=== PATIENT | male | born 1980 | race Caucasian/White ===

== ENCOUNTER 2018-01-02 21:29 | Emergency (ER) | payer BC ==
[2018-01-02 21:43] VITALS: BP 128/86
--- NOTE | 2018-01-02 22:33 | UC ---
Respiratory Complaint HPI - HPI Summary HPI Summary: 4 day history of recurrent fever, malaise, myalgias. No headache, rash, occasional mild cough. No hx of tick bites. No infectious contacts. Had flu in July, has felt well since. States temp was 100.5 this evening. has continued to work despite this. Last ibuprofen was 24 hours ago. Has some mild abdominal discomfort. - History of Current Complaint Chief Complaint: UCGeneralIllness Stated Complaint: FEVER,COUGH,ACHES,FATIGUE Time Seen by Provider: 01/02/18 22:23 Hx Obtained From: Patient Onset/Duration: Sudden Onset, Lasting Days - 4 Timing: Intermittent Episodes Severity Initially: Moderate Severity Currently: Moderate Pain Intensity: 6 Character: Cough: Nonproductive - occasional only Associated Signs And Symptoms: Positive: Fever - some sweats. - Allergies/Home Medications Allergies/Adverse Reactions: Allergies Allergy/AdvReac Type Severity Reaction Status Date / Time Penicillins Allergy Rash Verified 01/02/18 21:37 erythromycin base AdvReac Vomiting Verified 01/02/18 21:37 PMH/Surg Hx/FS Hx/Imm Hx Previously Healthy: Yes - Surgical History Surgical History: None - Family History Known Family History: Positive: None - healthy family - Social History Occupation: Employed Full-time Lives: With Family Alcohol Use: Occasionally Substance Use Type: None Smoking Status (MU): Never Smoked Tobacco Type: Cigarettes When Did the Patient Quit Smoking/Using Tobacco: 10 YRS AGO quit chewing tobacco Review of Systems Constitutional: Fever, Fatigue Skin: Negative Eyes: Negative ENT: Negative Respiratory: Negative Cardiovascular: Negative Gastrointestinal: Abdominal Pain - has diffuse pain without vomiting. Genitourinary: Negative Motor: Negative Neurovascular: Negative Musculoskeletal: Negative Neurological: Negative Psychological: Negative Is Patient Immunocompromised?: No All Other Systems Reviewed And Are Negative: Yes Physical Exam Triage Information Reviewed: Yes Appearance: Ill-Appearing - looks mildly fatigued Vital Signs: Initial Vital Signs Temp 98.6 F 01/02/18 21:38 Pulse 108 01/02/18 21:38 Resp 22 01/02/18 21:38 BP 128/86 01/02/18 21:38 Pulse Ox 99 01/02/18 21:38 Eye Exam: Other - no photophobia, eom normal Eyes: Positive: Conjunctiva Clear ENT: Positive: Pharynx normal, TMs normal Neck: Positive: Supple, Nontender, No Lymphadenopathy Respiratory: Positive: Lungs clear, Normal breath sounds Cardiovascular: Positive: No Murmur, Pulses Normal, Tachycardia Abdominal Exam: Other - midly tender, no guarding or rebound Abdomen Description: Positive: No Organomegaly, Soft Bowel Sounds: Positive: Present Musculoskeletal: Positive: Strength Intact, ROM Intact Neurological: Positive: Alert, Muscle Tone Normal Skin Exam: Normal UC Diagnostic Evaluation - Laboratory O2 Sat by Pulse Oximetry: 99 Respiratory Course/Dx - Course Course Of Treatment: symptomatic treatment of viral illness. Will need follow up with PMD if fever continues - Differential Dx/Diagnosis Differential Diagnosis/HQI/PQRI: Influenza, Other - pneumonia. Provider Diagnoses: viral syndrome. Discharge - Sign-Out/Discharge Documenting (check all that apply): Patient Departure All imaging exams completed and their final reports reviewed: No Studies - Discharge Plan Condition: Stable Disposition: HOME Patient Education Materials: Viral Syndrome (ED) Referrals: Alan Douglas MD [Primary Care Provider] - Additional Instructions: Continue ibuprofen, hydration. Check you temp in the morning, and, if feverish, follow up with your primary care physician for evaluation. At this time, there is no focus of infection, but , if fever persists, testing would be indicated. - Billing Disposition and Condition Condition: STABLE Disposition: Home
== END 2018-01-02 22:48 | disposition home or self-care (01) ==
LOC: UCCORT 21:29
DX: B34.9 Viral infection, unspecified (principal); Z88.0 Allergy status to penicillin; Z88.1 Allergy status to other antibiotic agents; F17.221 Nicotine dependence, chewing tobacco, in remission
CPT/HCPCS: 99211; G0463